=== PATIENT | male | born 1975 | race Two or more races ===

== ENCOUNTER 2017-07-05 23:05 | Emergency (ER) | payer OTHER ==
[~2017-07-05] VITALS: Ht 185.4 cm; Wt 107.0 kg
[~2017-07-05 23:05] MED LIST: DOLOGESIC 500-1 EACH PO; PEPCID40 MG PO; ZOFRAN8 MG PO
== END 2017-07-06 05:40 | disposition home or self-care (01) ==
LOC: ER 23:05 → CPU-OBS 23:08 → ER 23:08 → CPU-OBS 07-06 05:40
DX: R07.89 Other chest pain (principal); F06.4 Anxiety disorder due to known physiological condition
CPT/HCPCS: G0378; G0379; 93005

== ENCOUNTER 2018-08-23 15:59 | Emergency (ER) | payer OTHER ==
[~2018-08-23] VITALS: Ht 185.4 cm; Wt 104.3 kg
== END 2018-08-23 20:09 | disposition home or self-care (01) ==
LOC: ER 15:59
DX: L25.8 Unspecified contact dermatitis due to other agents (principal); T61.01XA Ciguatera fish poisoning, accidental (unintentional), initial encounter

== ENCOUNTER 2023-02-25 02:22 | Emergency (ER) | payer OTHER ==
[~2023-02-25] VITALS: Ht 185.4 cm; Wt 104.3 kg
[2023-02-25 09:05] LABS: HEMATOCRIT 44.6 % (39.0-48.0); HEMOGLOBIN 15.2 g/dL (13-16.00); MEAN CELL VOLUME 85.5 fL (80.0-100.00); MEAN CORPUSCULAR HEMOGLOBIN 29.1 pg (27.00-32.0); PLATELET COUNT 214 K/uL (150-450); RED BLOOD COUNT 5.21 M/uL (4.00-6.00); RED CELL DISTRIBUTION WIDTH 13.5 % (11.5-14.5)
[2023-02-25 09:41] LABS: CALCIUM 9.4 mg/dL (8.5-10.1); CREATININE SERUM 1.03 mg/dL (0.70-1.30); GFR 78.09; POTASSIUM 4.04 mEq/L (3.5-5.1)
== END 2023-02-25 10:08 | disposition home or self-care (01) ==
LOC: ER 02:23
PROVIDERS: General Practice
DX: R53.1 Weakness (principal); R73.09 Other abnormal glucose; Z20.822 Contact with and (suspected) exposure to COVID-19